=== PATIENT | female | born 1990 | race Caucasian/White ===

== ENCOUNTER 2016-08-20 21:39 | Inpatient (IN) | payer MEDICAID ==
[~2016-08-20] VITALS: Ht 152.4 cm; Wt 65.6 kg
[~2016-08-20 21:39] MED LIST: ADV100 IH; ALBU8HFA4 IH; AZIT250T6 PO; PRED5 PO
[2016-08-20 23:26] LABS: BASOPHILS % (AUTO) 0.3 % (0.0-2.0); EOSINOPHILS % (AUTO) 4.4 % (1.0-6.0); HEMATOCRIT 39.6 % (36-46); HEMOGLOBIN 13.2 g/dL (12.0-16.0); LYMPHOCYTES # (AUTO) 2.5 K/uL (1.0-4.8); LYMPHOCYTES % (AUTO) 30.7 % (22.0-44.0); MEAN CORPUSCULAR HEMOGLOBIN 30.1 pg (26.0-34.0); MEAN CORPUSCULAR HGB CONC 33.4 G/dL (31.0-37.0); MEAN CORPUSCULAR VOLUME 90 fL (80-100); MONOCYTES # (AUTO) 0.8 K/uL (0.1-1.0); MONOCYTES % (AUTO) 10.3 % (2.0-9.0); NEUTROPHILS # (AUTO) 4.4 K/uL (1.8-7.7); NEUTROPHILS % (AUTO) 54.3 % (40.0-70.0); PLATELET COUNT (AUTO) 302 K/uL (150-450); RED BLOOD CELL COUNT(AUTO) 4.39 MIL/uL (4.00-5.20); RED CELL DISTRIBUTION WIDTH 13.1 % (11.5-14.5); WHITE BLOOD COUNT (AUTO) 8.1 K/uL (4.5-11.0)
[2016-08-20 23:35] LABS: ANION GAP 12 mmol/L (8-16); CALCIUM, TOTAL 8.3 mg/dL (8.8-10.5); CARBON DIOXIDE 25 mmol/L (22-29); CHLORIDE 104 mmol/L (98-107); CREATININE 0.72 mg/dL (0.60-1.30); GLOMERULAR FILTR. RATE CALC > 60 mL/min (>60); POTASSIUM 3.6 mmol/L (3.5-5.1); SODIUM SERUM 141 mmol/L (136-145); UREA NITROGEN, BLOOD 7 mg/dL (7-18)
[2016-08-20 23:41] LABS: ALANINE AMINOTRANSFERASE 31 U/L (12-78); ALBUMIN 3.5 g/dL (3.4-5.0); ASPARTATE AMINOTRANSFERASE 16 U/L (15-37); BILIRUBIN,TOTAL 0.6 mg/dL (0.1-1.0)
[2016-08-20 23:51] LABS: APPEARANCE,URINE CLEAR (CLEAR); GLUCOSE, URINE (UA) NEGATIVE (NEGATIVE); KETONES,URINE NEGATIVE (NEGATIVE); LEUKOCYTE ESTERASE ,URINE NEGATIVE (NEGATIVE); OCCULT BLOOD,URINE MODERATE (NEGATIVE); PROTEIN,URINE NEGATIVE (NEGATIVE)
[2016-08-21 00:11] LABS: ADD UA MICROSCOPIC YES
[2016-08-21 00:23] LABS: SQUAMOUS EPITHELIAL CELL,UR Rare /LPF (None Seen); WBC,URINE None Seen /HPF (0-5)
[2016-08-21] MEDS ORDERED: 0.9% SODIUM CHLORIDE 10 ML SYRINGE IVP PRN (02:15)
[2016-08-21] MEDS ORDERED: PIPERACILLIN/TAZO 3.375 GM/D5W 50 ML IV ONE (02:15)
[2016-08-21] MEDS ORDERED: POTASSIUM CHL 20 MEQ/D5-0.45NS 1,000 ML IV ONE (02:15)
[2016-08-21] MEDS ORDERED: ONDANSETRON HCL 4 MG/2 ML VIAL IVP PRN (02:15)
[2016-08-21] MEDS ORDERED: HYDROmorphone 2 MG/ML SYRINGE IVP PRN ×2 (02:15→11:45)
[2016-08-21 03:18] VITALS: BP 134/79
[2016-08-21] MEDS ORDERED: PNEUMOCOCCAL VACCINE POLYVALENT 0.5 ML VIAL [PPSV23] IM ONE (03:30)
[2016-08-21 07:23] VITALS: BP 120/69
[2016-08-21] MEDS ORDERED: PIPERACILLIN/TAZO 3.375 GM/D5W 50 ML IV SCH (09:00)
[2016-08-21] MEDS ORDERED: POTASSIUM CHL 20 MEQ/D5-0.45NS 1,000 ML IV SCH (10:00)
[2016-08-21] MEDS ORDERED: BUPIVACAINE 0.25%/EPI 1:200,000/PF 10 ML VIAL ONE (10:19)
[2016-08-21] MEDS ORDERED: SODIUM CHLORIDE 0.9% IRRIG BAG 1,000 ML IRRIG ONE (10:19)
[2016-08-21] MEDS ORDERED: RINGERS SOLUTION,LACTATED 1,000 ML IV ONE ×2 (10:38→11:24)
[2016-08-21] MEDS ORDERED: MEPERIDINE-PF 25 MG/ML SYRINGE ONE (11:40)
[2016-08-21] MEDS ORDERED: HYDROmorphone 2 MG/ML SYRINGE ONE (11:41)
[2016-08-21] MEDS ORDERED: FentaNYL CITRATE-PF 100 MCG/2 ML VIAL IVP PRN (11:45)
[2016-08-21] MEDS ORDERED: MEPERIDINE-PF 25 MG/ML SYRINGE IVP PRN (11:45)
[2016-08-21] MEDS ORDERED: MIDAZOLAM HCL 2 MG/2 ML VIAL IVP ONE (12:00)
[2016-08-21] MEDS ORDERED: FentaNYL CITRATE-PF 100 MCG/2 ML VIAL IVP ONE (12:00)
[2016-08-21] MEDS ORDERED: MORPHINE SULFATE 2 MG/ML SYRINGE IVP PRN (12:15)
[2016-08-21] MEDS ORDERED: OxyCODONE HCL/ACETAMINOPHEN 5-325 MG TABLET PO PRN ×2 (12:15)
[2016-08-21 16:03] VITALS: BP 104/58
[2016-08-21 19:36] VITALS: BP 114/55
[2016-08-21] MEDS ORDERED: OXYGEN THERAPY IH SCH (20:00)
[2016-08-21] MEDS: DOCUSATE SODIUM 100 MG CAPSULE PO SCH (21:00)
[2016-08-21] MEDS ORDERED: LIDOCAINE HCL/PF 2% 5 ML VIAL INJ ONE (21:51)
[2016-08-21] MEDS ORDERED: ONDANSETRON HCL 4 MG/2 ML VIAL IVP ONE (21:51)
[2016-08-21] MEDS ORDERED: METOCLOPRAMIDE HCL 5 MG/ML 2 ML VIAL IVP ONE (21:51)
[2016-08-21] MEDS ORDERED: DEXAMETHASONE SOD PHOS 4 MG/ML VIAL IVP ONE (21:51)
[2016-08-21] MEDS ORDERED: ALBUTEROL SULFATE HFA 90 MCG/PUFF 8 GM INHALER IH ONE (21:51)
[2016-08-21] MEDS ORDERED: ROCURONIUM BROMIDE 10 MG/ML 5 ML VIAL IVP ONE (21:51)
[2016-08-21] MEDS ORDERED: KETOROLAC TROMETHAMINE 60 MG/2 ML VIAL IM ONE (21:51)
[2016-08-21] MEDS ORDERED: PROPOFOL 1% 20 ML VIAL IVP ONE (21:51)
[2016-08-21 23:22] VITALS: BP 107/58
[2016-08-22 04:58] VITALS: BP 112/53
[2016-08-22 08:15] VITALS: BP 104/52
[2016-08-22] MEDS: DOCUSATE SODIUM 100 MG CAPSULE PO SCH (09:00)
[2016-08-22 11:00] VITALS: BP 111/62
[2016-08-22] MEDS ORDERED: DSS100 PO ×2 (13:21→13:22)
[2016-08-22] MEDS ORDERED: PERCT PO ×2 (13:21→13:22)
== END 2016-08-22 14:55 | disposition home or self-care (01) | DRG 225 ==
LOC: EMS 21:40 → 6N 08-21 02:15
PROVIDERS: ADMIT Surgery; ATTEND Surgery
PROC: 0DTJ4ZZ Resection of Appendix, Percutaneous Endoscopic Approach (ICD-10-PCS; principal; 2016-08-21 11:27)
DX: K35.80 Unspecified acute appendicitis (principal); E86.0 Dehydration; J45.909 Unspecified asthma, uncomplicated; Z79.899 Other long term (current) drug therapy
CPT/HCPCS: 74176; 87081; 88304; 96365; 96375; 99285; G0238; J1100; J1170; J1885; J2175; J2250; J2405; J2543; J2704; J2765; J3010; J3480; J3490; J3535; J7120